=== PATIENT | male | born 1980 | race Hispanic/Latino ===

== ENCOUNTER 2023-10-28 09:38 | Emergency (ER) | payer SELFPAY ==
[2023-10-28] MEDS ORDERED: Boostrix 0.5 ML (Tdap) VIAL (>/=7 yrs of age) ONE (09:52)
[2023-10-28] MEDS ORDERED: Ketorolac Tromethamine 30 MG (1 mL) VIAL ONE (09:52)
== END 2023-10-28 11:20 | disposition home or self-care (01) ==
LOC: ERS 09:38
DX: S90.32XA Contusion of left foot, initial encounter (principal); Z23 Encounter for immunization; W20.8XXA Other cause of strike by thrown, projected or falling object, initial encounter
CPT/HCPCS: 90471; 90715; 96372; J1885